=== PATIENT | female | born 1945 | race Caucasian/White ===

== ENCOUNTER → 2016-12-27 | Day surgery (SDC) | payer MEDICARE, MEDICAID ==
[~2016-12-27] MED LIST: ALBU17I INH; ALPR0.5T99 PO; BECL0.07 INH; BUPIVACAINE HCL PF 0.5% 10 ML VIAL ONE; CHRO200C PO; CHROMIUM; CINNAMON; CO-Q-10; DOXY100T PO; FURO1TAB93 PO; LACTATED RINGER'S 1000 ML INJ 1,000 ML ONE; LIDOCAINE 1%/EPINEPHrine 1:100,000 SOLN 20 ML VIAL ONE; MIDAZOLAM HCL 2 MG/2 ML VIAL ONE; NORV5TAB PO; ONDANSETRON HCL 4 MG/2 ML VIAL IV PUSH ONE; POTA-243 PO; PROPOFOL 200 MG/20 ML AMP IV ONE; PYRI25TA9 PO; ceFAZolin INJ 1,000 MG VIAL ONE
--- NOTE | 2016-12-27 14:55 | TN ---
cc: ANAND LAKHANI MD DATE OF SURGERY: 12/27/2016 ATTENDING PHYSICIAN AND SURGEON Dr. Anand Lakhani. PREOPERATIVE DIAGNOSIS Right foot osteoarthritis with osteophytes and callus formation PIP joint second toe, DIP joint third toe. POSTOPERATIVE DIAGNOSIS Right foot osteoarthritis with osteophytes and callus formation PIP joint second toe, DIP joint third toe. PROCEDURE Right foot excision of callus and osteophytes PIP joint second toe, DIP joint third toe. PROCEDURE IN DETAIL Informed consent was obtained. The patient was taken to the operating room and placed in supine position on the operating table. She was administered a general anesthesia by Dr. Soliz of the Anesthesia Department. A digital block was performed with 0.25% Marcaine without epinephrine into the webspace between the second and third toes. At that time an incision was made which was slightly elliptical around the callus on the second toe lateral aspect PIP joint. Skin and subcutaneous tissue was divided. The incision was carried down to bone. The incision was approximately the level of mid lateral incision and was well above the neurovascular bundle. The osteophyte was identified and the C-arm was brought into position. Utilizing a rongeur the osteophyte was debrided down to a stable bone. The third toe medial aspect DIP joint callus was also excised with an elliptical incision. The C-arm was utilized to identify the osteophytes which were likewise debrided with a rongeur. Once satisfactory debridement had been accomplished the permanent x-rays were obtained and the tourniquet was deflated. The wounds were closed with 4-0 nylon interrupted horizontal mattress stitches. Xeroform, 4x4s, Bernabe, Sudhir wrap and a postop shoe were then applied. The patient tolerated the procedure well and was then taken to the recovery room in stable condition. At the completion of the procedure sponge count, instrument count and needle counts were all correct. Estimated blood loss was less than 10 ccs. Total tourniquet time was 16 minutes. MD ANDREW Barakat/RACHELL /2:06 PM /2:32 PM
== END | disposition home or self-care (01) ==
LOC: ESDC 11:56
PROVIDERS: ATTEND Orthopaedic Surgery
DX: M19.071 Primary osteoarthritis, right ankle and foot (principal); M25.774 Osteophyte, right foot; L84 Corns and callosities
CPT/HCPCS: 01480; 28122; 73620; 76000; J0690; J2250; J2405; J3010; J7120